=== PATIENT | female | born 1960 | race Caucasian/White ===

== ENCOUNTER 2019-07-14 19:53 | Emergency (ER) | payer OTHER ==
[~2019-07-14] VITALS: Ht 157.5 cm; Wt 90.7 kg
[~2019-07-14 19:53] MED LIST: KLONOPIN2 MG/TAB PO; NEURONTIN800 MG PO; PROVENTIL2.5 MG/3 M IH; PROZAC40 MG PO; TRANXENE T-TA3.75 MG PO
[2019-07-14] MEDS ORDERED: XANAX1 MG (20:23)
[2019-07-14] MEDS ORDERED: HYZAAR 100-251 EACH (20:23)
== END 2019-07-14 22:53 | disposition home or self-care (01) ==
LOC: ER 19:53
DX: I49.3 Ventricular premature depolarization (principal)